=== PATIENT | male | born 1985 | race Caucasian/White ===

== ENCOUNTER 2018-08-30 01:02 | Inpatient (IN) | payer OTHER ==
[~2018-08-30] VITALS: Ht 175.3 cm; Wt 63.6 kg
[2018-08-30] MEDS ORDERED: proCHLORperazine 10 MG/2 ml inj IV ONE (01:20)
[2018-08-30] MEDS ORDERED: ondansetron/PF 4mg/2ml inj IV ONE (01:20)
[2018-08-30] MEDS ORDERED: diphenhydrAMINE 50 mg/ml inj IV ONE (01:20)
[2018-08-30] MEDS ORDERED: normal saline 1000ML IV soln IVB ONE (01:20)
[2018-08-30] MEDS ORDERED: metoclopramide 5 mg/ml inj IV ONE (01:20)
[2018-08-30 01:39] LABS: BASOPHILS # (AUTO) 0.2 X10'3 (0-0.2); BASOPHILS % (AUTO) 1.1 % (0-1); EOSINOPHILS % (AUTO) 0.1 % (0-6); HEMATOCRIT 47.4 % (42.0-52.0); HEMOGLOBIN 15.1 g/dl (14.0-17.9); LYMPHOCYTES # (AUTO) 2.2 X10'3 (1.1-4.8); LYMPHOCYTES % (AUTO) 11.7 % (21-51); MEAN CORPUSCULAR HEMOGLOBIN 26.6 PG (27.0-31.0); MEAN CORPUSCULAR HGB CONC 31.9 g/dL (33.0-36.5); MEAN CORPUSCULAR VOLUME 83.4 FL (78-98); MEAN PLATELET VOLUME 8.3 FL (7.4-10.4); MONOCYTES # (AUTO) 1.8 X10'3 (0-0.9); MONOCYTES % (AUTO) 9.5 % (2-12); NEUTROPHILS # (AUTO) 14.4 X10'3 (1.8-7.7); NEUTROPHILS % (AUTO) 77.6 % (42-75); PLATELET COUNT 571 X10'3 (140-440); RED BLOOD COUNT 5.68 X10'6 (4.70-6.10); RED CELL DISTRIBUTION WIDTH 14.6 % (11.5-14.5); WHITE BLOOD COUNT 18.6 X10'3 (4.5-11.0)
[2018-08-30 01:51] LABS: ALANINE AMINOTRANSFERASE 57 U/L (12-78); ALBUMIN 4.7 G/DL (3.4-5.0); ALBUMIN/GLOBULIN RATIO 0.8 (1.1-1.5); ALKALINE PHOSPHATASE 91 IU/L (46-116); ANION GAP 12 (8-16); ASPARTATE AMINO TRANSFERASE 33 U/L (10-37); BILIRUBIN,TOTAL 1.1 MG/DL (0.1-1.0); BLOOD UREA NITROGEN 54 MG/DL (7-18); BUN/CREATININE RATIO 13.5 (5.4-32.0); CALCIUM 9.9 MG/DL (8.5-10.1); CHLORIDE 76 MMOL/L (99-107); CREATININE 3.99 MG/DL (0.60-1.10); GLUCOSE 193 MG/DL (70-104); POTASSIUM 4.1 MMOL/L (3.5-5.1); SODIUM 129 MMOL/L (135-145); TOTAL PROTEIN 10.4 G/DL (6.4-8.2); eGFR 17 ML/MIN
[2018-08-30 01:55] LABS: TOTAL CARBON DIOXIDE 41.2 MMOL/L (24-32)
[2018-08-30] MEDS ORDERED: normal saline 1000ml 1,000 ML IV ONE (02:00)
[2018-08-30] MEDS ORDERED: buprenorphine/naloxone 8mg/2mg SL tablet SL ONE (02:00)
[2018-08-30] MEDS ORDERED: buprenorphine/naloxone 8mg/2mg SL tablet SL PRN (02:05)
[2018-08-30] MEDS ORDERED: NO HOME MEDS (02:06)
[2018-08-30 02:26] LABS: ABG BASE EXCESS 16.7 mmol/L (-2.0-3.0); ABG HCO3 40.1 mmol/L (22.0-26.0); ABG OXYGEN SATURATION 98.9 % (95-98); ABG PCO2 (T) 42.2 mmHg (35.0-48.0); ABG PH (T) 7.596 (7.350-7.450); ABG PO2 (T) 161.6 mmHg (83-108); ALLEN'S TEST Positive; FCOHb 0.9 % (0.5-1.5); FLOW 3 L/min; PATIENT TEMPERATURE 37.1; RESPIRATORY RATE (OBSERVED) 14 b/min; TOTAL HEMOGLOBIN 14.1 G/dl (14.0-18.0)
[2018-08-30] MEDS ORDERED: LORazepam 2 mg/ml vial IV ONE (02:30)
[2018-08-30] MEDS ORDERED: normal saline 1000ml 1,000 ML IV SCH (03:01)
[2018-08-30] MEDS ORDERED: magnesium hydroxide 30ml (MOM) UD suspension PO PRN (03:05)
[2018-08-30] MEDS ORDERED: metoclopramide 5 mg/ml inj IV PRN (03:05)
[2018-08-30] MEDS ORDERED: ondansetron/PF 4mg/2ml inj IV PRN (03:05)
[2018-08-30] MEDS ORDERED: morphine 4 MG/ML inj SYRINge IV PRN ×2 (03:05)
[2018-08-30] MEDS ORDERED: acetaminophen 325mg tablet PO PRN (03:05)
[2018-08-30] MEDS ORDERED: HYDROcodone/acetaminophen 10/325mg tab PO PRN (03:05)
[2018-08-30] MEDS ORDERED: diphenhydrAMINE 25mg capsule PO PRN (03:05)
[2018-08-30] MEDS ORDERED: HYDROcodone/acetaminophen 5mg/325mg tablet PO PRN (03:05)
[2018-08-30] MEDS ORDERED: mag hydrox/Alum hydrox/simeth 30ml oral suspension PO PRN (03:05)
[2018-08-30 04:00] VITALS: BP 137/78
--- NOTE | 2018-08-30 06:11 | NUR ---
Problems reprioritized. Patient report given, questions answered & plan of care reviewed with Addendum: 08/30/18 at 0612 by Srikanth Moran RN Amended: Links added.
--- NOTE | 2018-08-30 06:54 | NUR ---
Patient in room [facility]. I have received report from HUSSAIN CROWELL and had the opportunity to ask questions and assume patient care.
[2018-08-30 08:00] VITALS: BP_SYST 111; BP_SYST 114; BP_DIAS 58; BP_DIAS 66
[2018-08-30] MEDS ORDERED: heparin, porcine 5000 units/ml vial SQ SCH (08:00)
[2018-08-30 09:44] LABS: CLARITY,URINE CLEAR (Clear); COLOR,URINE YELLOW (Yellow); GLUCOSE, URINE NEGATIVE (Neg); KETONES,URINE NEGATIVE (Neg); LEUKOCYTE ESTERASE ,URINE NEGATIVE (Neg); NITRITES, URINE NEGATIVE (Neg); OCCULT BLOOD,URINE LARGE (Neg); PH,URINE 7.5 (4.8-8.0); PROTEIN,URINE NEGATIVE (Neg); UROBILINOGEN,URINE 0.2 E.U/dL (0.2-1.0)
[2018-08-30 09:46] LABS: UA COLLECTION TYPE NON-SPECIFIED
[2018-08-30 09:52] LABS: URINE AMPHETAMINE SCREEN POSITIVE (Neg); URINE BARBITUATE SCREEN NEGATIVE (Neg); URINE BENZODIAZEPINES SCREEN POSITIVE (Neg); URINE CANNABINOID SCREEN NEGATIVE (Neg); URINE COCAINE SCREEN NEGATIVE (Neg); URINE METHADONE SCREEN NEGATIVE (Neg); URINE OPIATE SCREEN POSITIVE (Neg); URINE PHENCYCLIDINE SCREEN NEGATIVE (Neg)
[2018-08-30 09:57] LABS: BACTERIA,URINE 1+ /HPF (Neg); RBC,URINE 50-100 /HPF (0-2); SQUAMOUS EPITHELIAL CELL,UR FEW /LPF (FEW); WBC CLUMPS,URINE FEW /HPF (NEGATIVE)
--- NOTE | 2018-08-30 11:52 | NUR ---
Pt signed out AMA. informed. Pt informed of risks and consequences involved in leaving the hospital against advise.
== END 2018-08-30 11:50 | disposition left against medical advice (07) | DRG 683 ==
LOC: ER 01:03 → EEVIPCON 01:03 → ED HOLD 03:01 → SUR 3N 03:30
PROVIDERS: ADMIT Internal Medicine; ATTEND Hospitalist
DX: N17.9 Acute kidney failure, unspecified (principal); F11.23 Opioid dependence with withdrawal; E87.3 Alkalosis; E87.1 Hypo-osmolality and hyponatremia; F17.200 Nicotine dependence, unspecified, uncomplicated; Z53.21 Procedure and treatment not carried out due to patient leaving prior to being seen by health care provider; E86.0 Dehydration; Z88.0 Allergy status to penicillin; Z79.899 Other long term (current) drug therapy
CPT/HCPCS: 36415; 36600; 80053; 80305; 81001; 82803; 85018; 85025; 87070; 87088; 93005; 96361; 96374; 96375; 99285; G0378; J0780; J1200; J1644; J2405; J2765; J7030